=== PATIENT | female | born 1960 | race Caucasian/White ===

== ENCOUNTER 2018-01-18 16:36 | Emergency (ER) | payer OTHER ==
[2018-01-18] MEDS: MECLIZINE 12.5 MG TAB PO (18:13)
[2018-01-18] MEDS: SOD CHLORIDE 0.9% 500 ML IV (18:49)
== END 2018-01-18 19:50 | disposition home or self-care (01) ==
LOC: E/R 16:36
DX: R42 Dizziness and giddiness (principal); R40.2252 Coma scale, best verbal response, oriented, at arrival to emergency department; R40.2362 Coma scale, best motor response, obeys commands, at arrival to emergency department; R40.2142 Coma scale, eyes open, spontaneous, at arrival to emergency department
CPT/HCPCS: 96360; 99284-25